=== PATIENT | female | born 1940 ===

== ENCOUNTER 2023-10-24 09:48 | Emergency (ER) | payer MEDICARE, BC | END 2023-10-24 12:20 | disposition home or self-care (01) | LOC: MW.ED 09:48 | DX: S62.102A Fracture of unspecified carpal bone, left wrist, initial encounter for closed fracture (principal); E11.9 Type 2 diabetes mellitus without complications; Z88.0 Allergy status to penicillin; W01.198A Fall on same level from slipping, tripping and stumbling with subsequent striking against other object, initial encounter | CPT/HCPCS: 70450; 70450-26; 73110-26-LT; 73110-LT; 99284 ==